=== PATIENT | female | born 1970 | race African-American/Black ===

== ENCOUNTER 2018-10-26 11:03 | Emergency (ER) | payer MEDICARE, MEDICAID ==
[~2018-10-26] VITALS: Ht 165.1 cm; Wt 63.0 kg
[~2018-10-26 11:03] MED LIST: CITA10TA16 PO; GABA-531; TIZA4CAP6 PO; VITAMIN D
[2018-10-26] MEDS ORDERED: MORPHINE SULFATE 4 MG/ML CPJ (NOT FOR IM USE) IV STA (11:51)
[2018-10-26] MEDS ORDERED: KETOROLAC 30MG/ML VIAL IV STA (11:51)
[2018-10-26 12:33] LABS: CLARITY URINE CLEAR (CLEAR); COLOR URINE YELLOW (YELLOW); KETONES URINE NEGATIVE (NEGATIVE); LEUKOCYTE ESTERASE URINE NEGATIVE (NEGATIVE); NITRITE URINE NEGATIVE (NEGATIVE); OCCULT BLOOD URINE NEGATIVE (NEGATIVE); PROTEIN URINE NEGATIVE (NEGATIVE); UROBILINOGEN URINE 0.2 E.U./dL (0.2-1.0)
[2018-10-26 13:06] LABS: BASOPHILS % 1.2 % (0.0-2.0); EOSINOPHILS % 0.2 % (0.0-5.0); HEMATOCRIT. 40.5 % (36.0-48.0); HEMOGLOBIN. 13.7 g/dL (12.0-16.0); MEAN CORPUSCULAR HEMOGLOBIN 32.2 pg (28.0-32.0); MEAN CORPUSCULAR VOLUME 95.1 fL (81.0-99.0); MEAN PLATELET VOLUME 8.8 fl (7.4-10.4); MONOCYTES % 9.3 % (2.0-8.0); NEUTROPHILS % 75.3 % (40.0-76.0); PLATELET 240 x1000/uL (130-400); RED BLOOD CELL COUNT 4.27 mill/uL (4.2-5.4); RED CELL DISTRIBUTION WIDTH 14.2 % (11.6-14.6)
[2018-10-26 13:14] LABS: PROTHROMBIN TIME 10.4 sec (9.6-11.0)
[2018-10-26 13:15] LABS: CHLORIDE 110 mEq/L (98-107)
[2018-10-26 13:24] LABS: HCG SCREEN NEGATIVE
[2018-10-26 15:36] VITALS: BP 152/88
[2018-10-26] MEDS ORDERED: MORPHINE SULFATE 4 MG/ML CPJ (NOT FOR IM USE) IV ONE (16:30)
== END 2018-10-26 17:13 | disposition home or self-care (01) ==
LOC: ER 11:03
DX: M54.5 Low back pain (principal); G89.29 Other chronic pain; G35 Multiple sclerosis; I10 Essential (primary) hypertension
CPT/HCPCS: 36415; 80053; 81003; 81025; 83690; 84703; 85025; 85610; 96374; 96375; 96376; 99283; J1885; J2270

== ENCOUNTER 2019-06-20 08:28 | Emergency (ER) | payer MEDICARE, MEDICAID ==
[~2019-06-20] VITALS: Ht 167.6 cm; Wt 66.0 kg
[2019-06-20 08:38] VITALS: BP 178/110
== END 2019-06-20 11:31 | disposition left against medical advice (07) ==
LOC: ER 08:41
DX: F41.9 Anxiety disorder, unspecified (principal); Z53.21 Procedure and treatment not carried out due to patient leaving prior to being seen by health care provider

== ENCOUNTER 2021-12-27 07:24 | Emergency (ER) | payer MEDICARE, MEDICAID ==
[~2021-12-27] VITALS: Ht 165.1 cm; Wt 59.0 kg
[~2021-12-27 07:24] MED LIST changes: -GABA-531; +GABA-532
[2021-12-27 07:25] VITALS: BP 144/85
[2021-12-27] MEDS ORDERED: IBUPROFEN 600MG TABLET PO ONE (07:45)
[2021-12-27] MEDS ORDERED: IBUP-2029 MT (09:15)
== END 2021-12-27 10:24 | disposition home or self-care (01) ==
LOC: ER 07:24
DX: M25.561 Pain in right knee (principal); W18.30XA Fall on same level, unspecified, initial encounter; Y93.89 Activity, other specified; Y92.89 Other specified places as the place of occurrence of the external cause; Y99.8 Other external cause status
CPT/HCPCS: 29505; 73560; 99283

== ENCOUNTER 2021-12-29 12:02 | Emergency (ER) | payer MEDICARE, MEDICAID ==
[~2021-12-29] VITALS: Ht 165.1 cm; Wt 68.0 kg
[~2021-12-29 12:02] MED LIST changes: +IBUP-2029 MT
[2021-12-29] MEDS ORDERED: HYDROCODONE/ACETAMINOPHEN 5/325MG TABLET PO ONE (12:45)
[2021-12-29] MEDS ORDERED: TETANUS, DIPHTHERIA, PERTUSSIS VAC/PF 0.5ML (>10YR OLD) IM ONE (12:45)
[2021-12-29] MEDS ORDERED: AMOX1TAB16 MT (14:57)
[2021-12-29] MEDS ORDERED: HYDR-4001 MT (14:57)
[2021-12-29 15:25] VITALS: BP 145/92
== END 2021-12-29 16:10 | disposition home or self-care (01) ==
LOC: ER 12:02
DX: S81.051A Open bite, right knee, initial encounter (principal); W54.0XXA Bitten by dog, initial encounter; Y93.89 Activity, other specified; Y92.89 Other specified places as the place of occurrence of the external cause; Y99.8 Other external cause status; I10 Essential (primary) hypertension; Z79.899 Other long term (current) drug therapy
CPT/HCPCS: 73560; 90471; 90715; 99283